=== PATIENT | male | born 1970 | race Caucasian/White ===

== ENCOUNTER 2020-06-15 05:32 | Emergency (ER) | payer BC ==
[~2020-06-15] VITALS: Ht 182.9 cm; Wt 120.7 kg
[~2020-06-15 05:32] MED LIST: CEPH500 PO; CLIN300 PO; NAPR500 PO; OXYACE5T PO
[2020-06-15 06:38] LABS: BASOPHILS ABSOLUTE AUTO 0.07 K/mm3 (0.00-0.23); BASOPHILS PERCENT AUTO 1 % (0-2); EOSINOPHILS ABSOLUTE AUTO 0.15 K/mm3 (0.00-0.68); EOSINOPHILS PERCENT AUTO 2 % (0-6); Hematocrit 47.6 % (37.0-53.0); IMMATURE GRAN ABSOLUTE AUTO 0.02 K/mm3 (0.00-0.10); IMMATURE GRAN PERCENT AUTO 0 % (0-1); LYMPHOCYTES ABSOLUTE AUTO 1.52 K/mm3 (0.84-5.20); LYMPHOCYTES PERCENT AUTO 17 % (21-46); MONOCYTES ABSOLUTE AUTO 1.05 K/mm3 (0.16-1.47); MONOCYTES PERCENT AUTO 12 % (4-13); Mean Corpuscular HGB 29.4 pg (26.0-34.0); Mean Corpuscular HGB Conc 33.6 g/dL (31.5-36.5); Mean Corpuscular Volume 88 fL (80-100); Mean Platelet Volume 8.7 fL (9.1-12.4); NEUTROPHILS ABSOLUTE AUTO 6.28 K/mm3 (1.96-9.15); NEUTROPHILS PERCENT AUTO 69 % (41-73); Platelet Count 318 K/mm3 (150-400); RDW Coefficient Variation 12.7 % (11.7-14.2); RDW Standard Deviation 40.7 fL (35.1-46.3); Red Blood Cell Count 5.44 M/mm3 (4.30-5.90); White Blood Cell Count 9.09 K/mm3 (4.00-11.30)
[2020-06-15 06:55] LABS: Alanine Aminotransfer (ALT/SGP 34 U/L (12-78); Albumin, Blood 3.3 g/dL (3.4-5.0); Albumin/Globulin Ratio 0.7 (0.8-1.8); Alk Phos 91 U/L (50-136); Anion Gap 5 mmol/L (6-16); Aspartate Aminotrans (AST/SGOT 20 U/L (12-37); Bilirubin, Total 0.6 mg/dL (0.1-1.0); Blood Urea Nitrogen 20 mg/dL (8-24); Bun/Creatinine Ratio 18.3 (12.0-20.0); CO2, Blood 30 mmol/L (21-32); Calcium, Blood 9.1 mg/dL (8.5-10.1); Chloride, Blood 103 mmol/L (98-108); Creatinine, Blood 1.09 mg/dL (0.60-1.20); Glomerular Filtration Rate >60 (60-); Glucose, Blood 98 mg/dL (70-99); Potassium, Blood 3.2 mmol/L (3.5-5.5); Sodium, Blood 138 mmol/L (136-145); Total Protein, Blood 8.3 g/dL (6.4-8.2)
[2020-06-15 07:16] LABS: Source, Urine Clean Catch
[2020-06-15 07:21] LABS: Appearance, Urine Hazy (Clear); Bilirubin, Urine Neg (Neg); Blood, Urine 4+ (Neg); Color, Urine Yellow (P-Yellow); Glucose Qualitative, Urine Neg (Neg); Ketones, Urine Neg (Neg); Leukocyte Esterase, Urine 3+ (Neg); Nitrite, Urine Neg (Neg); Protein, Urine 1+ (Neg); Specific Gravity, Urine 1.015 (1.003-1.022); Urobilinogen, Urine NORM (Normal)
[2020-06-15 07:47] LABS: Bacteria Mod /hpf; Squamous Epithelial Cells Rare /hpf (Few); White Blood Cells, Urine 25-50 /hpf (0-5)
[2020-06-15 10:18] LABS: Influenza A, PCR NEGATIVE (NEGATIVE); Influenza B, PCR NEGATIVE (NEGATIVE); Resp Syncytial Virus, PCR NEGATIVE (NEGATIVE); SARS-Cov-2 (COVID-19) PCR, MMC NEGATIVE (NEGATIVE)
== END 2020-06-15 09:45 | disposition home or self-care (01) ==
LOC: ER 05:32
PROVIDERS: Emergency Medicine
DX: N13.2 Hydronephrosis with renal and ureteral calculous obstruction (principal); Z20.822 Contact with and (suspected) exposure to COVID-19
CPT/HCPCS: 0241U; 36415; 74177; 80053; 81001; 83690; 85025; 87086; 96361; 96374-59; 96375; 99285-25; J0696; J1885; J7030; Q9967

== ENCOUNTER → 2020-08-09 | Outpatient (CLI) | payer BC ==
[2020-08-28 11:10] LABS: BRUSHITE 3.36 ratio (0.00-3.00); CALCIUM OXALATE 4.51 ratio (0.00-6.00); CHLORIDE URINE 135 (110-250); CITRIC ACID (CITRATE) 624 mg/L (Not Estab.); CITRIC ACID(CITRATE) 686 mg/24 hr (320-1240); CREATININE, URINE 198.1 mg/dL (Not Estab.); CREATININE, URINE 2179.1 mg/24 hr (1000.0-2000.0); MAGNESIUM, URINE 9.9 mg/dL (Not Estab.); OSMOLALITY, URINE 725 (300-900); SODIUM, URINE 136 mmol/L (Not Estab.); SODIUM, URINE 150 (58-337); STRUVITE 0.04 ratio (0.00-1.00); URIC ACID 0.77 ratio (0.00-1.20); URINE VOLUME 1100 mL/24 hr (800-1800); URINE VOLUME (PRESERVATIVE) 1100 mL/24 hr (800-1800)
== END ==
LOC: LAB 08:35 → LAB SHORT 08:35
PROVIDERS: Physician Assistant
DX: N20.1 Calculus of ureter (principal)
CPT/HCPCS: 81003; 81050; 82131; 82140; 82340; 82436; 82507; 82570; 83735; 83935; 83945; 84105; 84133; 84300; 84392; 84560

== ENCOUNTER 2020-09-20 11:27 | Emergency (ER) | payer BC ==
[~2020-09-20] VITALS: Ht 182.9 cm; Wt 115.7 kg
== END 2020-09-20 14:59 | disposition home or self-care (01) ==
LOC: ER 11:27
DX: S86.011A Strain of right Achilles tendon, initial encounter (principal); W22.8XXA Striking against or struck by other objects, initial encounter; Y93.89 Activity, other specified
CPT/HCPCS: 29515; 73610; 73718; 99283-25